=== PATIENT | male | born 1940 | race Caucasian/White ===

== ENCOUNTER 2018-05-26 17:22 | Emergency (ER) | payer MEDICARE, BC ==
[~2018-05-26] VITALS: Ht 167.6 cm; Wt 81.6 kg
[~2018-05-26 17:22] MED LIST: COZAAR50 MG ORAL
[2018-05-26 17:31] VITALS: BP 161/79
[2018-05-26] MEDS ORDERED: Tetanus/Diptheria/Pertussis Vaccine 0.5ml Syr IM ONE (18:00)
[2018-05-26] MEDS ORDERED: Lidocaine 1% MPF 10mg/ml 5ml IM ONE (18:00)
[2018-05-26] MEDS ORDERED: Bacitracin Oint UD TOPIC ONE (18:00)
--- NOTE | 2018-05-26 18:00 | Emergency Room Report ---
History of Present Illness General Chief Complaint: Laceration Source: Patient, Medical Record Present Illness HPI 77-year-old male patient presents the ER complaining of laceration on left hand middle finger. Reports sustained a laceration earlier today while opening an umbrella. Reports was seen by his primary care provider earlier today who instructed him to come to the ER for "stitches". Reports no loss of range of motion of hand. Reports right hand dominant. Reports not up-to-date on tetanus vaccinations. Reports bleeding well controlled with gauze at this time. Allergies: Coded Allergies: No Known Allergies (Unverified , 05/26/18) Patient History Past Medical History: see triage record Reviewed Nursing Documentation: PMH: Agreed; PSxH: Agreed Nursing Documentation-PMH Past Medical History: No History, Except For Hx Hypertension: Yes Hx Cancer: No Review of Systems All Other Systems: negative except mentioned in HPI Physical Exam Vital Signs Date Time Temp Pulse Resp B/P (MAP) Pulse Ox O2 Delivery O2 Flow Rate FiO2 05/26/18 17:31 98.2 74 16 161/79 98 Sp02 EP Interpretation: reviewed, normal General Appearance: well appearing, no apparent distress, alert, GCS 15, non- toxic Head: normocephalic, atraumatic Eyes: bilateral eye normal inspection, bilateral eye PERRL ENT: hearing grossly normal, normal pharynx, no angioedema, normal voice, uvula midline, moist mucus membranes Neck: full range of motion Respiratory: lungs clear, normal breath sounds, no rhonchi, no respiratory distress, no accessory muscle use, no wheezing, speaking full sentences Cardiovascular #1: regular rate, rhythm, no edema Cardiovascular #2: 2+ radial (R), 2+ radial (L) Musculoskeletal: back normal, digits/nails normal, gait/station normal, normal range of motion, non-tender, other - NVI, cap refill <2seconds, full range of motion with flexion extension at PIP and DIP joint, sensation intact light touch Neurologic: alert, oriented x3, responsive, motor strength/tone normal, sensory intact Psychiatric: mood/affect normal Skin: laceration - 1 cm linear laceration on distal phalanx of palmar middle finger, superficial, no tendon exposure, bleeding well controlled Procedures Laceration/Wound Repair Laceration/Wound Repair : Consent: Verbal Wound Location: upper extremity Wound's Depth, Shape: superficial Wound Length (cm): 1 Wound Explored: contaminated Irrigated w/ Saline (ccs): 10 Betadine Prep?: Yes Anesthesia: 1% Lidocaine Volume Anesthetic (ccs): 3 Wound Debrided: extensive Wound Repaired With: sutures Suture Size/Type: 5:0 Number of Sutures: 3 Layer Closure?: No Sterile Dressing Applied?: Yes Splint Applied?: No Sling Applied?: No Patient Tolerated: Well Complications: None Medical Decision Making PA Attestation Dr. Ocasio is my supervising Physician whom patient management has been discussed with. Diagnostic Impression: Primary Impression: Laceration ER Course Pt presents to ED c/o laceration on left hand middle finger. DDX considered but are not limited to laceration, abrasion, contusion, cellulitis. VITAL SIGNS are WNL, patient is afebrile ED INTERVENTIONS: Wound was cleaned and irrigated using copious normal saline. Digital block using Lidocaine 1% was unable to achieve adequate anesthesia so local block was used using 1 mL of lidocaine. Laceration repaired. See procedure note. 3 sutures placed. Wound cleaned and covered using sterile dressing and Bacitracin. Patient reports understanding and agreement to treatment plan. Keep wound clean and dry. Followup with PCP in 2-3 days for wound check and suture removal in 7-10 days. ER precautions given. DISCHARGE: Rx provided for Keflex Rx provided for Bacitracin Rx provided for Tylenol At this time pt is stable for d/c to home. Patient resting comfortably, in no acute distress, nontoxic appearing, talking without difficulty. Will provide with patient care instructions and any necessary prescriptions. Patient to take medication as instructed. Care plan and follow-up instructions provided. Work note provided to patient. Patient questions asked and answered. Patient instructed to follow-up with primary care provider for wound check and suture removal. ER precautions given. Patient instructed to return to ER immediately for any new or worsening of symptoms. - Please note that this Emergency Department Report was dictated using [employer] offsider technology software, occasionally this can lead to erroneous entry secondary to interpretation by the dictation equipment. Last Vital Signs Date Time Temp Pulse Resp B/P (MAP) Pulse Ox O2 Delivery O2 Flow Rate FiO2 05/26/18 17:31 98.2 74 16 161/79 98 Status: improved Disposition: HOME, SELF-CARE Condition: Stable Scripts Acetaminophen* (TYLENOL EXTRA STRENGTH*) 500 Mg Tablet 500 MG ORAL Q8H PRN for Prn Headache/Temp > 101, #30 TAB 0 Refills Prov: Jorge Luis Duque 05/26/18 Cephalexin* (KEFLEX*) 500 Mg Capsule 500 MG ORAL EVERY 12 HOURS, #14 CAP 0 Refills Prov: Jorge Luis Duque 05/26/18 Bacitracin/Polymyxin B Sulfate (BACITRACIN-POLYMYXIN OINTMENT) 28.35 Gm Oint...g. 1 APPLIC TP BID, #28 GM Prov: Jorge Luis Duque 05/26/18 Patient Instructions: Laceration Care, Adult Additional Instructions: Patient instructed to follow-up with primary care provider in 2-3 days for wound check Suture removal in 7-10 days. Take medications as directed. Keep wound clean and dry. Patient questions asked and answered. ER precautions given, patient instructed to return to ER immediately for any new or worsening of symptoms. Jorge Luis Duque May 26, 2018 18:00
[2018-05-26 19:00] VITALS: BP 145/76
[2018-05-26] MEDS ORDERED: CEPHALEXIN500 MG ORAL (19:02)
[2018-05-26] MEDS ORDERED: BACITRACIN-P28.35 GM TP (19:02)
[2018-05-26] MEDS ORDERED: TYLENOL EXTRA500 MG ORAL (19:02)
== END 2018-05-26 19:00 | disposition home or self-care (01) ==
LOC: EMR 18:12
DX: S61.213A Laceration without foreign body of left middle finger without damage to nail, initial encounter (principal); W45.8XXA Other foreign body or object entering through skin, initial encounter; Y92.89 Other specified places as the place of occurrence of the external cause; Z23 Encounter for immunization
CPT/HCPCS: 90471; 90715; 99284